=== PATIENT | male | born 1955 | race Caucasian/White ===

== ENCOUNTER 2020-09-09 06:53 | Day surgery (SDC) | payer BC ==
[2020-09-09] MEDS ORDERED: Lactated Ringers 1,000 ML IV SCH (07:00)
[2020-09-09] MEDS ORDERED: fentaNYL 100 MCG/2 ML SDV ONE (07:39)
[2020-09-09] MEDS ORDERED: Propofol 200 MG/20 ML SDV ONE ×3 (07:39→08:48)
--- NOTE | 2020-09-09 11:55 | OR ---
PREOPERATIVE DIAGNOSIS: Positive FIT. POSTOPERATIVE DIAGNOSIS: Colon polyps. PROCEDURE PERFORMED: Total flexible colonoscopy with biopsies. ANESTHESIA: MAC anesthesia. COMPLICATIONS: None apparent. BLOOD LOSS: Minimal. FINDINGS: 1. Cecal polyp, 8 mm, hot snare, bisected polyp for retrieval through the scope, although it was removed in its entirety in 1 snare. 2. Ascending polyp, 4 mm, cold snare. 3. Sigmoid polyps x2, 5 mm/3 mm, hot snare, and cold forceps. 4. Sigmoid diverticulosis. START TIME: 821. CECUM TIME: 827. STOP TIME: 853. BOWEL PREP: [place] class 3. INDICATIONS FOR PROCEDURE: Mr. Bell is a 64-year-old male who had a positive FIT test a year or so ago. He has had no prior colon cancer screening of any sort. He has not had no bloody or dark black stools, and denies a family history of colon cancer. PROCEDURE IN DETAIL: After informed consent was obtained, the patient was brought to the procedure room, placed in left lateral decubitus position. MAC anesthesia was induced by Anesthesia colleagues. The colonoscope was introduced into the rectum and advanced all the way to the cecum. The appendiceal orifice was photographed. The terminal ileum was intubated and photographed. The colonoscope was then slowly withdrawn. No pathology was identified except for what is mentioned in the above findings section. A retroflexed view was obtained and the colonoscope was then removed. The patient was awoken from MAC anesthesia by Anesthesia colleagues without incident. PATHOLOGY: A) Colon, cecum, polyp Tubulovillous adenoma. B) Colon, ascending, polyp Sessile serrated adenoma. C) Colon, sigmoid, polyp Fragment of tubular adenoma. Fragments of hyperplastic polyp. RECOMMENDATIONS: Repeat screening colonoscopy in 3 years. RKM: 09/09/2020 08:59:16 MODL: 09/09/2020 09:18:27 /[id number] JUAN ALBERTO
--- NOTE | 2020-09-15 08:42 | LETTER ---
09/14/2020 Kranthi Bell [address] [place], [place] [address] RE: KRANTHI BELL : 1955 Dear Mr. Bell: I am writing to inform you of the pathology results from your recent colonoscopy. You had several precancerous polyps. These polyps do not contain cancer, but we removed them in order to prevent them from becoming cancer. Due to the number of precancers polyps you had, you will need a repeat screening colonoscopy in 3 years. Warmest regards,
== END 2020-09-09 10:15 | disposition home or self-care (01) ==
LOC: VM.SDS 06:53
PROVIDERS: ATTEND Student in an Organized Health Care Education/Training Program
DX: D12.2 Benign neoplasm of ascending colon (principal); D12.0 Benign neoplasm of cecum; D12.5 Benign neoplasm of sigmoid colon; K57.30 Diverticulosis of large intestine without perforation or abscess without bleeding; I10 Essential (primary) hypertension; G47.33 Obstructive sleep apnea (adult) (pediatric); E66.9 Obesity, unspecified; F17.210 Nicotine dependence, cigarettes, uncomplicated; Z01.812 Encounter for preprocedural laboratory examination; Z20.822 Contact with and (suspected) exposure to COVID-19; Z98.890 Other specified postprocedural states; Z68.37 Body mass index [BMI] 37.0-37.9, adult; Z79.899 Other long term (current) drug therapy
CPT/HCPCS: 00811; J2704; J3010; J7120; U0002

== ENCOUNTER 2021-07-24 22:08 | Inpatient (IN) | payer BC, MEDICARE ==
--- NOTE | 2021-07-24 23:14 | EDM.PDOC ---
ED HPI GENERAL MEDICAL PROBLEM - General Stated Complaint: SOB Time Seen by Provider: 07/24/21 22:17 Source of Information: Reports: Patient - History of Present Illness INITIAL COMMENTS - FREE TEXT/NARRATIVE: Kranthi is a 65 y/o male who comes to the ER with SOB. He reports that he has had a cough and sore throat for at least 6 days and now over the last 2 days he has gotten much more short of breath. Symptoms first started with a sore throat and runny nose. He hasn't had much energy and has kristin more tired. He is sat is 87% on room air when he arrives to the ER. - Related Data Allergies Allergy/AdvReac Type Severity Reaction Status Date / Time No Known Allergies Allergy Verified 09/09/20 07:46 Home Meds: Home Meds lisinopriL [Lisinopril] 40 mg PO DAILY 06/02/19 [History] amLODIPine [Norvasc] 5 mg PO DAILY 08/17/20 [History] Past Medical History HEENT History: Reports: Other (See Below) Other HEENT History: presbyopia. astigmatism. hypermetropia Cardiovascular History: Reports: Hypertension Respiratory History: Reports: Sleep Apnea Psychiatric History: Reports: Other (See Below) Other Psychiatric History: smoker. drinks alcohol > 4/day Endocrine/Metabolic History: Reports: Obesity/BMI 30+ - Past Surgical History HEENT Surgical History: Reports: Other (See Below) Other HEENT Surgeries/Procedures: tooth extraction Social & Family History - Caffeine Use Caffeine Use: Reports: None Review of Systems - Review of Systems Review Of Systems: See Below Constitutional: Reports: Weakness Eyes: Reports: No Symptoms Ears: Reports: No Symptoms Nose: Reports: Clear Discharge Mouth/Throat: Reports: Pain Respiratory: Reports: Shortness of Breath, Cough Cardiovascular: Reports: No Symptoms GI/Abdominal: Reports: Decreased Appetite Genitourinary: Reports: No Symptoms Musculoskeletal: Reports: No Symptoms Skin: Reports: No Symptoms Neurological: Reports: No Symptoms Psychiatric: Reports: No Symptoms ED EXAM, GENERAL - Physical Exam Exam: See Below Exam Limited By: No Limitations General Appearance: Alert, WD/WN, No Apparent Distress (Elderly male, sitting on edge of ER cart.) Eye Exam: Bilateral Eye: PERRL Ears: Normal External Exam, Normal Canal, Hearing Grossly Normal, Normal TMs Nose: Normal Inspection, Normal Mucosa Throat/Mouth: Normal Inspection, Normal Lips, Normal Oropharynx, Normal Voice Head: Atraumatic, Normocephalic Neck: Supple Respiratory/Chest: No Respiratory Distress, Other (Coarseness scattered throughout) Cardiovascular: Normal Peripheral Pulses, Regular Rate, Rhythm, No Murmur GI/Abdominal: Normal Bowel Sounds, Soft, Non-Tender (Male) Exam: Deferred Rectal (Males) Exam: Deferred Back Exam: Normal Inspection, Full Range of Motion Extremities: Normal Inspection, Normal Range of Motion, Non-Tender, Normal Capillary Refill, Pedal Edema (1+ nonpitting edema to ankles) Neurological: Alert, Oriented, CN II-XII Intact, Normal Cognition, Normal Gait, No Motor/Sensory Deficits Psychiatric: Normal Affect, Normal Mood Skin Exam: Warm, Dry, Intact, Normal Color Lymphatic: No Adenopathy #1 Interpretation EKG Date: 07/24/21 Time: 23:00 Rhythm: NSR Rate (Beats/Min): 76 [place]: Normal P-Wave: Present QRS: Normal ST-T: Normal QT: Normal EKG Interpretation Comments: Sinus Rhythm Course - Vital Signs Text/Narrative:: 2218 The patient was seen by the FRACTIONATION SUPERVISOR. Labs, EKG, and CXR ordered. He required 2 liters of oxygen to maintain sats in mid 90s. 2325 COVID/Flu/RSV negative. Note D-Dimer=0.80, oxygen removed and patient drops sats to 87%. CT Chest Angio ordered to rule out PE. Labs reviewed. Note VU=572. Will need to be admitted to acute care. [address] Serrano and notified of patient case. CT Chest pending yet. Will plan for Dr Serrano to admit patient. See admitting orders and H&P per Dr Serrano. NS started @ 2100ml/hr. - Orders/Labs/Meds Orders: Active Orders 24 hr Category Date Time Status Patient Status [ADT] Routine ADT 07/25/21 00:24 Ordered Oxygen Therapy Adult [Oxygen Therapy] [RC] ASDIRECTED Care 07/24/21 22:20 Active Ang Chest [CT] Stat Exams 07/24/21 23:23 Ordered LACTIC ACID [CHEM] Stat Lab 07/25/21 00:02 Ordered Sodium Chloride 0.9% [Normal Saline] 1,000 ml Med 07/25/21 00:30 Ordered IV ASDIRECTED Labs: Laboratory Tests 07/24/21 07/24/21 07/24/21 Range/Units 22:25 22:50 22:50 WBC 7.6 (4.0-10.0) x10^3/uL RBC 5.22 (4.5-6.0) x10^6/uL Hgb 16.7 (14.0-18.0) g/dL Hct 49.4 (40.0-52.0) % MCV 94.6 H (78.0-93.0) fL MCH 32.0 (26.0-32.0) pg MCHC 33.8 (32.0-36.0) g/dL RDW Coeff of Ariella 12.0 (10.0-15.0) % Plt Count 210 (130-400) x10^3/uL Immature Gran % (Auto) 0.30 (0.00-0.43) % Neut % (Auto) 72.8 (50.0-80.0) % Lymph % (Auto) 15.8 L (25.0-50.0) % Millard % (Auto) 9.5 (2.0-11.0) % Eos % (Auto) 1.3 (0.0-4.0) % Baso % (Auto) 0.3 (0.2-1.2) % Neut # (Auto) 5.6 (1.8-7.7) x10^3/uL Lymph # (Auto) 1.2 (1.0-4.8) x10^3/uL Millard # (Auto) 0.7 (0.0-0.8) x10^3/uL Eos # (Auto) 0.1 (0.0-0.5) x10^3/uL Baso # (Auto) 0.0 (0.0-0.2) x10^3/uL Immature Gran # (Auto) 0.02 (0.00-0.07) x10^3/uL PT 10.8 (9.9-12.5) SEC INR 1.0 L (2.0-3.5) D-Dimer, Quantitative 0.80 H (<=0.58) mg/LFEU POC ABG pH (7.35-7.45) pH POC ABG pCO2 (35-48) mmHg POC ABG pO2 (83-108) mmHg POC ABG HCO3 (21-28) mmol/L POC ABG Total CO2 (22-29) mmol/L POC ABG O2 Sat (94-98) % POC ABG Base Excess ((-2)-3) mmol/L POC FiO2 POC Blood Gas Comment Sodium (136-145) mmol/L Potassium (3.5-5.1) mmol/L Chloride (98-107) mmol/L Carbon Dioxide (21-32) mmol/L Anion Gap (5-15) mmol/L BUN (7-18) mg/dL Creatinine (0.70-1.30) mg/dL Est Cr Clr Drug Dosing Estimated GFR (MDRD) Glucose (70-99) mg/dL Calcium (8.5-10.1) mg/dL Corrected Calcium (8.5-10.1) mg/dL Total Bilirubin (0.2-1.0) mg/dL AST (15-37) U/L ALT (16-63) U/L Alkaline Phosphatase (46-116) U/L Troponin I High Sens (<=76) ng/L NT-Pro-B Natriuret Pep (<=125) pg/mL Total Protein (6.4-8.2) g/dL Albumin (3.4-5.0) g/dL Globulin Albumin/Globulin Ratio Procalcitonin (0.1-0.50) ng/mL Influenza Type A RNA Negative (NEGATIVE) RSV RNA (INAAT) Negative (NEGATIVE) Influenza Type B RNA Negative (NEGATIVE) SARS-CoV-2 RNA (AVA) Negative (NEGATIVE) 07/24/21 07/24/21 07/24/21 Range/Units 22:50 22:50 23:38 WBC (4.0-10.0) x10^3/uL RBC (4.5-6.0) x10^6/uL Hgb (14.0-18.0) g/dL Hct (40.0-52.0) % MCV (78.0-93.0) fL MCH (26.0-32.0) pg MCHC (32.0-36.0) g/dL RDW Coeff of Ariella (10.0-15.0) % Plt Count (130-400) x10^3/uL Immature Gran % (Auto) (0.00-0.43) % Neut % (Auto) (50.0-80.0) % Lymph % (Auto) (25.0-50.0) % Millard % (Auto) (2.0-11.0) % Eos % (Auto) (0.0-4.0) % Baso % (Auto) (0.2-1.2) % Neut # (Auto) (1.8-7.7) x10^3/uL Lymph # (Auto) (1.0-4.8) x10^3/uL Millard # (Auto) (0.0-0.8) x10^3/uL Eos # (Auto) (0.0-0.5) x10^3/uL Baso # (Auto) (0.0-0.2) x10^3/uL Immature Gran # (Auto) (0.00-0.07) x10^3/uL PT (9.9-12.5) SEC INR (2.0-3.5) D-Dimer, Quantitative (<=0.58) mg/LFEU POC ABG pH 7.40 (7.35-7.45) pH POC ABG pCO2 43 (35-48) mmHg POC ABG pO2 57 L* (83-108) mmHg POC ABG HCO3 26.6 (21-28) mmol/L POC ABG Total CO2 27.1 (22-29) mmol/L POC ABG O2 Sat 89.1 L (94-98) % POC ABG Base Excess 2 ((-2)-3) mmol/L POC FiO2 28 POC Blood Gas Comment Called critical res Sodium 124 L* (136-145) mmol/L Potassium 4.5 (3.5-5.1) mmol/L Chloride 90 L (98-107) mmol/L Carbon Dioxide 30 (21-32) mmol/L Anion Gap 8.5 (5-15) mmol/L BUN 13 (7-18) mg/dL Creatinine 0.9 (0.70-1.30) mg/dL Est Cr Clr Drug Dosing TNP Estimated GFR (MDRD) > 60 Glucose 103 H (70-99) mg/dL Calcium 8.5 (8.5-10.1) mg/dL Corrected Calcium 9.0 (8.5-10.1) mg/dL Total Bilirubin 0.5 (0.2-1.0) mg/dL AST 23 (15-37) U/L ALT 23 (16-63) U/L Alkaline Phosphatase 113 (46-116) U/L Troponin I High Sens 13 (<=76) ng/L NT-Pro-B Natriuret Pep 99 (<=125) pg/mL Total Protein 8.0 (6.4-8.2) g/dL Albumin 3.4 (3.4-5.0) g/dL Globulin 4.6 Albumin/Globulin Ratio 0.74 Procalcitonin <0.05 L (0.1-0.50) ng/mL Influenza Type A RNA (NEGATIVE) RSV RNA (INAAT) (NEGATIVE) Influenza Type B RNA (NEGATIVE) SARS-CoV-2 RNA (AVA) (NEGATIVE) Departure - Departure Time of Disposition: 00:05 Disposition: Admitted As Inpatient 66 Condition: Good Clinical Impression: Hypoxemia, Hyponatremia, D-dimer, elevated - Discharge Information Referrals: Angela Sutherland MD [Primary Care Provider] - Additional Instructions: -Admit to Acute Inpatient Care - Problem List & Annotations (1) Hyponatremia SNOMED Code(s): 53334188 Code(s): E87.1 - HYPO-OSMOLALITY AND HYPONATREMIA Status: Acute Current Visit: Yes (2) D-dimer, elevated SNOMED Code(s): 305338733 Code(s): R79.89 - OTHER SPECIFIED ABNORMAL FINDINGS OF BLOOD CHEMISTRY Status: Acute Current Visit: Yes Annotation/Comment:: CT Chest pending to exclude PE. (3) Hypoxemia SNOMED Code(s): 031753269 Code(s): R09.02 - HYPOXEMIA Status: Acute Current Visit: Yes Annotation/Comment:: Needs 2 liters of oxygen to maintain sats. COVID/flu/RSV neg. D-Dimer=0.80, CT Chest pending. Current tobacco user. Most likely COPD Exacerbation. - Problem List Review Problem List Initiated/Reviewed/Updated: Yes - My Orders Last 24 Hours: My Active Orders 07/24/21 22:20 Oxygen Therapy Adult [Oxygen Therapy] [RC] ASDIRECTED 07/24/21 23:23 Ang Chest [CT] Stat 07/25/21 00:02 LACTIC ACID [CHEM] Stat 07/25/21 00:24 Patient Status [ADT] Routine 07/25/21 00:30 Sodium Chloride 0.9% [Normal Saline] 1,000 ml IV ASDIRECTED - Assessment/Plan Last 24 Hours: My Active Orders 07/24/21 22:20 Oxygen Therapy Adult [Oxygen Therapy] [RC] ASDIRECTED 07/24/21 23:23 Ang Chest [CT] Stat 07/25/21 00:02 LACTIC ACID [CHEM] Stat 07/25/21 00:24 Patient Status [ADT] Routine 07/25/21 00:30 Sodium Chloride 0.9% [Normal Saline] 1,000 ml IV ASDIRECTED Plan: -Dr Serrano to admit to Acute Care
[2021-07-24 23:18] LABS: CORONAVIRUS COVID-19 NAA NEGATIVE (NEGATIVE); RESPIRATORY SYNCYTIAL VIR NAA NEGATIVE (NEGATIVE)
[2021-07-24 23:22] LABS: CHLORIDE,CL 90 mmol/L (98-107)
[2021-07-24 23:23] LABS: ANION GAP 8.5 mmol/L (5-15); SODIUM,NA 124 mmol/L (136-145)
[2021-07-24 23:41] LABS: PCO2 ARTERIAL,POC 43 mmHg (35-48)
[2021-07-25] MEDS ORDERED: Iopamidol 755 Mg/ML 100 ML Bottle IVPUSH ONE (00:44)
[2021-07-25] MEDS ORDERED: Acetaminophen 325 MG Tab PO PRN (00:47)
[2021-07-25] MEDS ORDERED: LORazepam 1 MG Tab PO PRN (00:57)
[2021-07-25] MEDS: Sodium Chloride 0.9% 1,000 ML IV SCH ×3 (01:00→21:30)
[2021-07-25] MEDS ORDERED: methylPREDNISolone Sod Succ 125 MG in Sodium Chloride 0.9% 100 ML IV SCH (01:00)
[2021-07-25] MEDS: Enoxaparin 40 MG/0.4 ML Syringe SUBCUT SCH ×3 (01:37→19:55)
[2021-07-25] MEDS: Albuterol/Ipratropium 3.0-0.5 MG/3 ML Neb Soln NEB SCH ×6 (01:38→22:36)
[2021-07-25] MEDS: methylPREDNISolone Sodium Succinate 125 MG/2 ML SDV IVPUSH SCH ×4 (01:38→17:32)
--- NOTE | 2021-07-25 01:52 | HP ---
CHIEF COMPLAINT: Shortness of breath. HISTORY OF PRESENT ILLNESS: The patient is a 65-year-old male, patient of Dr. Angela Sutherland who presents to the emergency room after feeling sick for the past week. He has had nasal congestion, chilled, and has had some allergy inhalers. He became more weak after blowing snow on 07/17/2021. He had called into the clinic on 07/24/2021, asking for advice and felt that he should probably be seen the next day, may try some nasal sprays. When presenting to the emergency room, his initial O2 sats were down to 87%, and so he was immediately placed on oxygen, sats went up to 95%. He was denying chest pain, just feeling weak and achy chills. He has had his COVID vaccine. MEDICATIONS: His medications that he is currently on is lisinopril 20 mg 2 pills daily, Norvasc 10 mg daily. ALLERGIES: None known. PAST MEDICAL HISTORY: He has had hypertension; obstructive sleep apnea, which he has declined a sleep study for; he has a tobacco use disorder where he smokes about 2 packs a day; alcohol use disorder, he consumes at least 8 beers a day. He was noted to have heme-positive stools in 2019, but failed to get colonoscopy. PAST SURGICAL HISTORY: He has had teeth extraction. FAMILY HISTORY: Mother healthy. Father had COPD, at 72. Sisters had uterine cancer. Granddaughters had glaucoma. Daughters had congenital heart disease and had mitral valve replacement. SOCIAL HISTORY: The patient is . He is a desai. He smokes 2 packs a day normally, but has not smoked much this week. Alcohol use is 8 beers a day. REVIEW OF SYSTEMS: Weight has been about the same. Does have some mild swelling in his feet. No skin rashes. No headaches. Does have a little bit of nasal congestion as well as cough. No chest pain. No nausea. No heartburn. No constipation. No problems with his bladder. Mood is good. PHYSICAL EXAMINATION: Vital Signs: Temperature is 36.9, pulse is 72, blood pressure is 144/77, respiratory rate 16, oxygen is 95 on 2 L. General: Patient's skin is quite flushed. HEENT: His mucous membranes are moist. Pharynx is somewhat beefy red. Conjunctivae are injected. Pupils equal and reactive to light. Tympanic membranes normal bilaterally. Neck: Thick, obese. Difficult to feel anatomy. Heart: Regular rate and rhythm. Lungs: Rare inspiratory wheeze on left base. Abdomen: Obese, soft. Difficult to palpate anatomy due to obesity. Extremities: Lower extremities have trace edema. Neurologic: He moves all extremities symmetric. Mood lopez, he is alert, pleasant to visit with. LABORATORY DATA: Shows his white blood cell count 7.6, hemoglobin 16.7, platelet count 210, with 72 segs, 15 lymphocytes. INR is 1.0. D-dimer elevated at 0.08. Blood gases on 2 L shows pH of 7.4, pCO2 of 43, pO2 of 57, bicarb 26, O2 sats 89 on 2 L. His sodium is 124, potassium 4.5, creatinine 0.9, GFR greater than 60. Glucose 103, lactic acid 0.9, calcium 9.0, total bilirubin 0.5, AST 23, ALT 23, alkaline phosphatase 113. Troponin 13, normal is 76 or less. proBNP 99, albumin 3.4. Procalcitonin less than 0.05. Influenza A and B were negative. RSV negative. COVID negative. CTA of chest is pending at the time of this dictation. IMPRESSION: 1. Hypoxemia, unclear etiology, probably most likely exacerbation of chronic obstructive pulmonary disease. 2. Positive D-dimer. 3. Hyponatremia. 4. Alcohol dependence. 5. Tobacco dependence. 6. Hypertension. 7. Obesity. 8. Obstructive sleep apnea, untreated. PLAN: The patient will be admitted to acute care. He will be code level 1 status. We will start him on Lovenox prophylactic, but if he is positive we will need to do therapeutic treatment for pulmonary embolism. The patient will be placed on DuoNeb to help with respiratory status. We will have patient receive Solu-Medrol to also help with respiratory status. We will place him on a nicotine patch unless he declines it. We will offer Ativan in case he gets some agitation with alcohol withdrawal. He has never had a history of DTs. We will start him on oral thiamine. We will recheck his sodium. He will receive IV fluids somewhat cautiously, not to over hydrate. Anticipate patient's stay to be a few days. The patient is code level 1 status. He will be admitted to Dr. Angela Sutherland's service. GM07/25/2021 01:08:56 MODL: 07/25/2021 01:46:52 /[id number]
--- NOTE | 2021-07-25 05:35 | CT ---
[id number] CT/CTA Chest EXAM: CTA Chest CLINICAL DATA: SHORTNESS OF BREATH COMPARISON STUDY: None. FINDINGS: Lungs: Mild bilateral central symmetric lower lobe predominant peribronchial thickening. Findings are most consistent with bronchitis/bronchiolitis. No evidence of pneumonia. Mild amount of bibasal atelectasis and scarring. No pleural effusion or pneumothorax. Mediastinum: No mediastinal or hilar lymphadenopathy. Heart and great vessels: Heart is normal in size. No pericardial effusion. Thoracic aorta is normal in caliber. Pulmonary arteries are normal in caliber. Negative for pulmonary embolus. Bones: Chronic healed left-sided rib fractures. No acute fractures. Mild lumbar spondylosis. Upper abdomen: Unremarkable. IMPRESSION: Negative for pulmonary embolus or other acute findings in the chest. Lincoln Moser MD 07/25/21 0534 Thank you for allowing us to participate in the care of your patient.
[2021-07-25 07:44] LABS: CHLORIDE,CL 93 mmol/L (98-107)
[2021-07-25 07:46] LABS: ANION GAP 8.3 mmol/L (5-15); SODIUM,NA 126 mmol/L (136-145)
[2021-07-25] MEDS ORDERED: amLODIPine 5 MG Tab PO SCH (08:00)
[2021-07-25] MEDS ORDERED: Thiamine 100 MG Tab PO SCH (08:00)
[2021-07-25] MEDS ORDERED: Nicotine 21 MG/24 Hr Patch TRDERM SCH (08:00)
[2021-07-25] MEDS ORDERED: Lisinopril 20 MG Tab PO SCH (08:00)
--- NOTE | 2021-07-25 09:25 | PCM.SN.2 ---
- Free Text/Narrative Note: Checked on patient this morning. He is feeling ok. No shortness of breath. Na up to 126. Will continue IV fluids. Recheck this pm. Did order urine sodium and creatinine to help clarify cause for hypoNa. Will also check TSH and cortisol with am labs. CTA negative for PE. Continue current cares otherwise.
[2021-07-25] MEDS: Nicotine 21 MG/24 Hr Patch TRDERM SCH (09:42)
[2021-07-25] MEDS: Lisinopril 20 MG Tab PO SCH (09:44)
[2021-07-25] MEDS: amLODIPine 10 MG Tab PO SCH (09:46)
[2021-07-25 14:28] LABS: CHLORIDE,CL 92 mmol/L (98-107)
[2021-07-25 14:30] LABS: ANION GAP 13.5 mmol/L (5-15); SODIUM,NA 129 mmol/L (136-145)
[2021-07-25] MEDS: Thiamine 100 MG Tab PO SCH (19:55)
[2021-07-26] MEDS: methylPREDNISolone Sodium Succinate 125 MG/2 ML SDV IVPUSH SCH ×3 (02:45→18:12)
[2021-07-26] MEDS: Albuterol/Ipratropium 3.0-0.5 MG/3 ML Neb Soln NEB SCH ×6 (02:46→22:44)
[2021-07-26] MEDS: Sodium Chloride 0.9% 1,000 ML IV SCH (06:26)
[2021-07-26 07:12] LABS: CHLORIDE,CL 96 mmol/L (98-107); SODIUM,NA 132 mmol/L (136-145)
[2021-07-26 07:15] LABS: ANION GAP 9.3 mmol/L (5-15)
[2021-07-26] MEDS: Nicotine 21 MG/24 Hr Patch TRDERM SCH (07:54)
[2021-07-26] MEDS: amLODIPine 10 MG Tab PO SCH (07:54)
[2021-07-26] MEDS: Lisinopril 20 MG Tab PO SCH (07:54)
--- NOTE | 2021-07-26 10:40 | PCM.PN ---
- General Info Date of Service: 07/26/21 Subjective Update: 65 yo male hospital day #2 admitted with hypoxia secondary to COPD exacerbation as well as hyponatremia. Feeling much better today. Lungs feel more open. He is not short of breath. He states he is bringing up sputum now with his cough. He denies any fever or c hills. He feels less weak. He does note that he has really been drinking more like 12-15 beers/day and knows he has a problem. He is ready to be done drinking. He also was smoking 2 packs/day and is ready to be done with that as well. - Review of Systems General: Reports: No Symptoms HEENT: Reports: No Symptoms Pulmonary: Reports: Cough, Sputum. Denies: Shortness of Breath Cardiovascular: Reports: No Symptoms Gastrointestinal: Reports: No Symptoms Genitourinary: Reports: No Symptoms Musculoskeletal: Reports: No Symptoms Skin: Reports: No Symptoms Neurological: Reports: No Symptoms - Patient Data Vitals - Most Recent: Last Vital Signs Temp 36.9 C 07/26/21 06:00 Pulse 88 07/26/21 06:00 Resp 18 07/26/21 06:00 BP 150/59 H 07/26/21 07:54 Pulse Ox 94 L 07/26/21 07:53 Weight - Most Recent: 124.647 kg I&O - Last 24 Hours: Intake & Output 07/25/21 07/26/21 07/26/21 22:59 06:59 14:59 Intake Total 800 Balance 800 Lab Results Last 24 Hours: Laboratory Results - last 24 hr 07/25/21 07/25/21 07/25/21 Range/Units 04:40 04:40 06:40 WBC (4.0-10.0) x10^3/uL RBC (4.5-6.0) x10^6/uL Hgb (14.0-18.0) g/dL Hct (40.0-52.0) % MCV (78.0-93.0) fL MCH (26.0-32.0) pg MCHC (32.0-36.0) g/dL RDW Coeff of Ariella (10.0-15.0) % Plt Count (130-400) x10^3/uL Immature Gran % (Auto) (0.00-0.43) % Neut % (Auto) (50.0-80.0) % Lymph % (Auto) (25.0-50.0) % [place] % (Auto) (2.0-11.0) % Eos % (Auto) (0.0-4.0) % Baso % (Auto) (0.2-1.2) % Neut # (Auto) (1.8-7.7) x10^3/uL Lymph # (Auto) (1.0-4.8) x10^3/uL [place] # (Auto) (0.0-0.8) x10^3/uL Eos # (Auto) (0.0-0.5) x10^3/uL Baso # (Auto) (0.0-0.2) x10^3/uL Immature Gran # (Auto) (0.00-0.07) x10^3/uL Sodium (136-145) mmol/L Potassium (3.5-5.1) mmol/L Chloride (98-107) mmol/L Carbon Dioxide (21-32) mmol/L Anion Gap (5-15) mmol/L BUN (7-18) mg/dL Creatinine (0.70-1.30) mg/dL Est Cr Clr Drug Dosing mL/min Estimated GFR (MDRD) Glucose (70-99) mg/dL Calcium (8.5-10.1) mg/dL GGT 34 (9-64) U/L Ur Creatinine Concen 45 mg/dL U Sodium Concentration 18 mEq/L 07/25/21 07/26/21 07/26/21 Range/Units 14:05 06:45 06:45 WBC 14.0 H (4.0-10.0) x10^3/uL RBC 4.80 (4.5-6.0) x10^6/uL Hgb 15.6 (14.0-18.0) g/dL Hct 45.9 (40.0-52.0) % MCV 95.6 H (78.0-93.0) fL MCH 32.5 H (26.0-32.0) pg MCHC 34.0 (32.0-36.0) g/dL RDW Coeff of Ariella 12.0 (10.0-15.0) % Plt Count 216 (130-400) x10^3/uL Immature Gran % (Auto) 0.40 (0.00-0.43) % Neut % (Auto) 93.8 H (50.0-80.0) % Lymph % (Auto) 3.8 L (25.0-50.0) % [place] % (Auto) 1.9 L (2.0-11.0) % Eos % (Auto) 0.0 (0.0-4.0) % Baso % (Auto) 0.1 L (0.2-1.2) % Neut # (Auto) 13.1 H (1.8-7.7) x10^3/uL Lymph # (Auto) 0.5 L (1.0-4.8) x10^3/uL [place] # (Auto) 0.3 (0.0-0.8) x10^3/uL Eos # (Auto) 0.0 (0.0-0.5) x10^3/uL Baso # (Auto) 0.0 (0.0-0.2) x10^3/uL Immature Gran # (Auto) 0.05 (0.00-0.07) x10^3/uL Sodium 129 L* 132 L (136-145) mmol/L Potassium 4.5 5.3 H (3.5-5.1) mmol/L Chloride 92 L 96 L (98-107) mmol/L Carbon Dioxide 28 32 (21-32) mmol/L Anion Gap 13.5 9.3 (5-15) mmol/L BUN 13 11 (7-18) mg/dL Creatinine 1.2 0.9 (0.70-1.30) mg/dL Est Cr Clr Drug Dosing 59.38 79.17 mL/min Estimated GFR (MDRD) > 60 > 60 Glucose 156 H 153 H (70-99) mg/dL Calcium 8.7 8.3 L (8.5-10.1) mg/dL GGT (9-64) U/L Ur Creatinine Concen mg/dL U Sodium Concentration mEq/L Med Orders - Current: Current Medications Acetaminophen (Acetaminophen 325 Mg Tab) 650 mg PO Q4H PRN PRN Reason: Pain (Mild 1-3)/fever Albuterol/Ipratropium (Albuterol/Ipratropium 3.0-0.5 Mg/3 Ml Neb Soln) 3 ml NEB Q4HRRT [facility] Last Admin: 07/26/21 06:29 Dose: 3 ml Documented by: Amlodipine Besylate (Amlodipine 10 Mg Tab) 10 mg PO DAILY [facility] Last Admin: 07/26/21 07:54 Dose: 10 mg Documented by: Doxycycline Hyclate (Doxycycline 100 Mg Cap) 100 mg PO BID [facility] Enoxaparin Sodium (Enoxaparin 40 Mg/0.4 Ml Syringe) 40 mg SUBCUT BEDTIME [facility] Last Admin: 07/25/21 19:55 Dose: 40 mg Documented by: Lisinopril (Lisinopril 20 Mg Tab) 40 mg PO DAILY [facility] Last Admin: 07/26/21 07:54 Dose: 40 mg Documented by: Methylprednisolone Sodium Succinate (Methylprednisolone Sodium Succinate 125 Mg/2 Ml Sdv) 125 mg IVPUSH Q8H [facility] Last Admin: 07/26/21 09:17 Dose: 125 mg Documented by: Nicotine (Nicotine 21 Mg/24 Hr Patch) 21 mg TRDERM DAILY [facility] Last Admin: 07/26/21 07:54 Dose: 21 mg Documented by: Thiamine HCl (Thiamine 100 Mg Tab) 100 mg PO BEDTIME [facility] Last Admin: 07/25/21 19:55 Dose: 100 mg Documented by: Discontinued Medications Albuterol/Ipratropium (Albuterol/Ipratropium 3.0-0.5 Mg/3 Ml Neb Soln) 3 ml NEB Q4HRRT [facility] Last Admin: 07/25/21 06:09 Dose: 3 ml Documented by: Amlodipine Besylate (Amlodipine 5 Mg Tab) 10 mg PO DAILY [facility] Last Admin: 07/25/21 10:21 Dose: Not Given Documented by: Enoxaparin Sodium (Enoxaparin 40 Mg/0.4 Ml Syringe) 40 mg SUBCUT DAILY [facility] Last Admin: 07/25/21 10:21 Dose: Not Given Documented by: Sodium Chloride (Normal Saline) 1,000 mls @ 100 mls/hr IV ASDIRECTED [facility] Last Admin: 07/26/21 06:26 Dose: 100 mls/hr Documented by: Iopamidol (Iopamidol 755 Mg/Ml 100 Ml Bottle) 100 ml IVPUSH ONETIME ONE Stop: 07/25/21 00:45 Last Admin: 07/25/21 00:45 Dose: 100 ml Documented by: Lisinopril (Lisinopril 20 Mg Tab) 40 mg PO DAILY [facility] Last Admin: 07/25/21 10:21 Dose: Not Given Documented by: Lorazepam (Lorazepam 1 Mg Tab) 1 mg PO Q6H PRN PRN Reason: Agitation Last Admin: 07/25/21 01:38 Dose: 1 mg Documented by: Methylprednisolone Sodium Succinate (Methylprednisolone Sodium Succinate 125 M g/2 Ml Sdv) 125 mg IVPUSH Q8H [facility] Last Admin: 07/25/21 10:22 Dose: Not Given Documented by: Nicotine (Nicotine 21 Mg/24 Hr Patch) 21 mg TRDERM DAILY [facility] Last Admin: 07/25/21 10:21 Dose: 21 mg Documented by: Thiamine HCl (Thiamine 100 Mg Tab) 100 mg PO BEDTIME [facility] Last Admin: 07/25/21 10:22 Dose: Not Given Documented by: - Exam General: Alert, Oriented, Cooperative, No Acute Distress HEENT: Mucous Membr. Moist/[place] Neck: Supple, Trachea Midline, No Thyromegaly. No: Lymphadenopathy Lungs: Normal Respiratory Effort, Wheezing (throughout both lungs) Cardiovascular: Regular Rate, Regular Rhythm, No Murmurs GI/Abdominal Exam: Normal Bowel Sounds, Soft, Non-Tender, No Organomegaly, No Distention, No Mass Extremities: Normal Inspection, Normal Range of Motion, Non-Tender, No Pedal Edema, Normal Capillary Refill Peripheral Pulses: 2+: Radial (L), Radial (R) Skin: Warm, Dry, Intact Neurological: No New Focal Deficit - Patient Data Lab Results Last 24 hrs: Laboratory Results - last 24 hr 07/25/21 07/25/21 07/25/21 Range/Units 04:40 04:40 06:40 WBC (4.0-10.0) x10^3/uL RBC (4.5-6.0) x10^6/uL Hgb (14.0-18.0) g/dL Hct (40.0-52.0) % MCV (78.0-93.0) fL MCH (26.0-32.0) pg MCHC (32.0-36.0) g/dL RDW Coeff of Ariella (10.0-15.0) % Plt Count (130-400) x10^3/uL Immature Gran % (Auto) (0.00-0.43) % Neut % (Auto) (50.0-80.0) % Lymph % (Auto) (25.0-50.0) % [place] % (Auto) (2.0-11.0) % Eos % (Auto) (0.0-4.0) % Baso % (Auto) (0.2-1.2) % Neut # (Auto) (1.8-7.7) x10^3/uL Lymph # (Auto) (1.0-4.8) x10^3/uL [place] # (Auto) (0.0-0.8) x10^3/uL Eos # (Auto) (0.0-0.5) x10^3/uL Baso # (Auto) (0.0-0.2) x10^3/uL Immature Gran # (Auto) (0.00-0.07) x10^3/uL Sodium (136-145) mmol/L Potassium (3.5-5.1) mmol/L Chloride (98-107) mmol/L Carbon Dioxide (21-32) mmol/L Anion Gap (5-15) mmol/L BUN (7-18) mg/dL Creatinine (0.70-1.30) mg/dL Est Cr Clr Drug Dosing mL/min Estimated GFR (MDRD) Glucose (70-99) mg/dL Calcium (8.5-10.1) mg/dL GGT 34 (9-64) U/L Ur Creatinine Concen 45 mg/dL U Sodium Concentration 18 mEq/L 07/25/21 07/26/21 07/26/21 Range/Units 14:05 06:45 06:45 WBC 14.0 H (4.0-10.0) x10^3/uL RBC 4.80 (4.5-6.0) x10^6/uL Hgb 15.6 (14.0-18.0) g/dL Hct 45.9 (40.0-52.0) % MCV 95.6 H (78.0-93.0) fL MCH 32.5 H (26.0-32.0) pg MCHC 34.0 (32.0-36.0) g/dL RDW Coeff of Ariella 12.0 (10.0-15.0) % Plt Count 216 (130-400) x10^3/uL Immature Gran % (Auto) 0.40 (0.00-0.43) % Neut % (Auto) 93.8 H (50.0-80.0) % Lymph % (Auto) 3.8 L (25.0-50.0) % [place] % (Auto) 1.9 L (2.0-11.0) % Eos % (Auto) 0.0 (0.0-4.0) % Baso % (Auto) 0.1 L (0.2-1.2) % Neut # (Auto) 13.1 H (1.8-7.7) x10^3/uL Lymph # (Auto) 0.5 L (1.0-4.8) x10^3/uL [place] # (Auto) 0.3 (0.0-0.8) x10^3/uL Eos # (Auto) 0.0 (0.0-0.5) x10^3/uL Baso # (Auto) 0.0 (0.0-0.2) x10^3/uL Immature Gran # (Auto) 0.05 (0.00-0.07) x10^3/uL Sodium 129 L* 132 L (136-145) mmol/L Potassium 4.5 5.3 H (3.5-5.1) mmol/L Chloride 92 L 96 L (98-107) mmol/L Carbon Dioxide 28 32 (21-32) mmol/L Anion Gap 13.5 9.3 (5-15) mmol/L BUN 13 11 (7-18) mg/dL Creatinine 1.2 0.9 (0.70-1.30) mg/dL Est Cr Clr Drug Dosing 59.38 79.17 mL/min Estimated GFR (MDRD) > 60 > 60 Glucose 156 H 153 H (70-99) mg/dL Calcium 8.7 8.3 L (8.5-10.1) mg/dL GGT (9-64) U/L Ur Creatinine Concen mg/dL U Sodium Concentration mEq/L Result Diagrams: 07/26/21 06:45 07/26/21 06:45 Sepsis Event Note - Evaluation Sepsis Screening Result: No Definite Risk - Focused Exam Vital Signs: Vital Signs Temp Pulse Resp BP BP Pulse Ox Pulse Ox 07/26/21 07:54 150/59 H 07/26/21 07:53 94 L 07/26/21 06:00 36.9 C 88 18 150/59 H 94 L 07/26/21 02:05 36.7 C 91 18 155/79 H 91 L - Problem List & Annotations (1) Respiratory failure SNOMED Code(s): 356473383 Code(s): J96.90 - RESPIRATORY FAILURE, UNSP, UNSP W HYPOXIA OR HYPERCAPNIA Status: Acute Current Visit: Yes Qualifiers: Chronicity: acute Respiratory failure complication: hypoxia Qualified Code(s): J96.01 - Acute respiratory failure with hypoxia (2) COPD exacerbation SNOMED Code(s): 026746111 Code(s): J44.1 - CHRONIC OBSTRUCTIVE PULMONARY DISEASE W (ACUTE) EXACERBATION Status: Acute Current Visit: Yes (3) Tobacco dependence SNOMED Code(s): 18460441 Code(s): F17.200 - NICOTINE DEPENDENCE, UNSPECIFIED, UNCOMPLICATED Status: Chronic Current Visit: Yes (4) Hyponatremia SNOMED Code(s): 23715958 Code(s): E87.1 - HYPO-OSMOLALITY AND HYPONATREMIA Status: Acute Current Visit: Yes (5) Alcohol use disorder SNOMED Code(s): 6079509 Code(s): TSZ5213 - Status: Chronic Current Visit: Yes (6) Hypertension, benign SNOMED Code(s): 32920916 Code(s): I10 - ESSENTIAL (PRIMARY) HYPERTENSION Status: Chronic Current Visit: Yes (7) JOZEF (obstructive sleep apnea) SNOMED Code(s): 74849664 Code(s): G47.33 - OBSTRUCTIVE SLEEP APNEA (ADULT) (PEDIATRIC) Status: Chronic Current Visit: Yes (8) Obesity (BMI 30-39.9) SNOMED Code(s): 833228706, 517018659 Code(s): E66.9 - OBESITY, UNSPECIFIED Status: Chronic Current Visit: Yes - Problem List Review Problem List Initiated/Reviewed/Updated: Yes - My Orders Last 24 Hours: My Active Orders 07/26/21 10:14 Dietary Supplements [RC] BIDMEALS 07/26/21 10:15 Doxycycline [Vibramycin] 100 mg PO BID - Assessment Assessment:: 65 yo male hospital day #2 admitted with hypoxia secondary to COPD exacerbation as well as hyponatremia. Feeling much better today. Labs also improved. - Plan Plan:: #1 Acute hypoxic respiratory failure #2 COPD exacerbation #3 Tobacco use - O2 requirements have been fairly stable. Will wean as able. - [employer] to be secondary to COPD exacerbation as other causes (CHF, PE, pneumonia, viral pneumonia, etc) ruled out. - On methylprednisolone for COPD exacerbation, which will be continued today as he still has significant wheezing. - Will add doxycycline as he has 2 cardinal symptoms (cough, sputum) for COPD exacerbation. No role for IV antibiotics at this point. - Continue nebs. - He intends to quit smoking and denies needing any help with that at this time. #4 Hyponatremia - Likely secondary to #5. - Urine sodium and creatinine sent for clarification. - He is not on any diuretics. - Had intended to send TSH and cortisol this am but I did not get those orders in. Will order for tomorrow am. #5 Alcohol Use Disorder - Patient now admitting this is an issue. - Discussed medication assisted therapy, which he declines. - He will need follow-up on this outpatient. #6 HTN #7 Obesity #8 JOZEF - Home medications continued. Patient will remain on acute today - anticipate d/c in the next 24-48 hours. Would ideally have him weaned on the oxygen somewhat, if not off. Lovenox for VTE prophylaxis. Code status is full.
[2021-07-26] MEDS: Doxycycline 100 MG Cap PO SCH ×2 (11:51→21:15)
[2021-07-26] MEDS: Thiamine 100 MG Tab PO SCH (21:15)
[2021-07-26] MEDS: Enoxaparin 40 MG/0.4 ML Syringe SUBCUT SCH (21:15)
[2021-07-27] MEDS: methylPREDNISolone Sodium Succinate 125 MG/2 ML SDV IVPUSH SCH ×2 (02:26→11:02)
[2021-07-27] MEDS: Albuterol/Ipratropium 3.0-0.5 MG/3 ML Neb Soln NEB SCH ×2 (02:27→07:14)
[2021-07-27 07:16] LABS: CHLORIDE,CL 99 mmol/L (98-107); SODIUM,NA 136 mmol/L (136-145)
[2021-07-27 07:17] LABS: ANION GAP 8.8 mmol/L (5-15)
[2021-07-27] MEDS: Nicotine 21 MG/24 Hr Patch TRDERM SCH (07:48)
[2021-07-27] MEDS: Lisinopril 20 MG Tab PO SCH (07:49)
[2021-07-27] MEDS: Doxycycline 100 MG Cap PO SCH (07:49)
[2021-07-27] MEDS: amLODIPine 10 MG Tab PO SCH (07:49)
--- NOTE | 2021-07-27 09:01 | PCM.DCSUM1 ---
Discharge Summary - Hospital Course Brief History: Mr. Bell is a 65 yo male who was admitted with hyponatremia and hypoxia from a COPD exacerbation after presenting to the ER for shortness of breath and weakness. - Discharge Data Discharge Date: 07/27/21 Discharge Disposition: Home, Self-Care 01 Condition: Stable - Referral to Home Health Primary Care Physician: Angela Sutherland MD - Discharge Diagnosis/Problem(s) (1) Respiratory failure SNOMED Code(s): 947222921 ICD Code: J96.90 - RESPIRATORY FAILURE, UNSP, UNSP W HYPOXIA OR HYPERCAPNIA Status: Acute Current Visit: Yes Qualifiers: Chronicity: acute Respiratory failure complication: hypoxia Qualified Code(s): J96.01 - Acute respiratory failure with hypoxia (2) COPD exacerbation SNOMED Code(s): 211439983 ICD Code: J44.1 - CHRONIC OBSTRUCTIVE PULMONARY DISEASE W (ACUTE) EXACERBATION Status: Acute Current Visit: Yes (3) Tobacco dependence SNOMED Code(s): 54138982 ICD Code: F17.200 - NICOTINE DEPENDENCE, UNSPECIFIED, UNCOMPLICATED Status: Chronic Current Visit: Yes (4) Hyponatremia SNOMED Code(s): 94081097 ICD Code: E87.1 - HYPO-OSMOLALITY AND HYPONATREMIA Status: Acute Current Visit: Yes (5) Alcohol use disorder SNOMED Code(s): 6860594 ICD Code: VNF8469 - Status: Chronic Current Visit: Yes (6) Hypertension, benign SNOMED Code(s): 77585596 ICD Code: I10 - ESSENTIAL (PRIMARY) HYPERTENSION Status: Chronic Current Visit: Yes (7) JOZEF (obstructive sleep apnea) SNOMED Code(s): 25676286 ICD Code: G47.33 - OBSTRUCTIVE SLEEP APNEA (ADULT) (PEDIATRIC) Status: Chronic Current Visit: Yes (8) Obesity (BMI 30-39.9) SNOMED Code(s): 250199857, 213571511 ICD Code: E66.9 - OBESITY, UNSPECIFIED Status: Chronic Current Visit: Yes - Patient Summary/Data Operative Procedure(s) Performed: none Complications: none Consults: none Labs Pending at D/C: cortisol Recommended Follow-up Testing/Procedures: TSH Planned Operative Procedure(s) after DC: none Hospital Course: The patient was started on IV fluids for his hyponatremia. He was given nebs and steroids for his COPD. While he felt better yesterday am, he still had significant wheezing and a significant oxygen requirement; therefore, antibiotics were added. He has improved greatly over the past 24 hours. He states he feels the best he has felt in a long time. He has been weaned off oxyg en except for at night. He does have a history of JOZEF that is not currently treated. He is agreeable to an Auto-Pap prescription and follow-up with sleep medicine. His sodium had gradually improved so IV fluids were stopped yesterday morning. His sodium is now back to normal. The hyponatremia is felt to be secondary to excess alcohol use, which he intends to d/c at this time. He declines any referrals for treatments or any medications to assist. He also intends to quit smoking and would like nicotine replacement to assist with this. He will be discharged home with nicotine patches and gum, another 4 days of antibiotics, 3 days of prednisone, and a rescue inhaler. He will follow-up in clinic in about 10 days. His TSH was low during his hospitalization, felt to be related to the acute illness. Will plan to repeat in follow-up for reassessment. His hospitalization was otherwise uncomplicated. - Patient Instructions Diet: Regular Diet as Tolerated Activity: As Tolerated Driving: May Drive Today Notify Provider of: Fever - Discharge Plan *PRESCRIPTION DRUG MONITORING PROGRAM REVIEWED*: No *COPY OF PRESCRIPTION DRUG MONITORING REPORT IN PATIENT ANITA: No Prescriptions/Med Rec: Albuterol/Ipratropium [Combivent Respimat] 4 gm IH Q6H PRN #1 aer.w.adap PRN Reason: Shortness Of Breath Nicotine [Habitrol] 21 mg TRDERM DAILY #30 patch predniSONE [Prednisone] 40 mg PO DAILY #6 tablet Doxycycline [Vibramycin] 100 mg PO BID #8 cap Home Medications: Home Meds lisinopriL [Lisinopril] 40 mg PO DAILY 06/02/19 [History] amLODIPine Besylate [Amlodipine Besylate] 10 mg PO DAILY 07/25/21 [History] Albuterol/Ipratropium [Combivent Respimat] 4 gm IH Q6H PRN #1 aer.w.adap 07/27/21 [Rx] Doxycycline [Vibramycin] 100 mg PO BID #8 cap 07/27/21 [Rx] Nicotine [Habitrol] 21 mg TRDERM DAILY #30 patch 07/27/21 [Rx] predniSONE [Prednisone] 40 mg PO DAILY #6 tablet 07/27/21 [Rx] Forms: ED Department Discharge Referrals: Angela Sutherland MD [Primary Care Provider] - - Discharge Summary/Plan Comment DC Time >30 min.: Yes Total # of Minutes for Discharge Time: 35 - General Info Date of Service: 07/27/21 Subjective Update: Patient is feeling great this morning and hopes to go home. - Review of Systems General: Reports: No Symptoms HEENT: Reports: No Symptoms Pulmonary: Reports: No Symptoms Cardiovascular: Reports: No Symptoms Gastrointestinal: Reports: No Symptoms Genitourinary: Reports: No Symptoms Musculoskeletal: Reports: No Symptoms Skin: Reports: No Symptoms Neurological: Reports: No Symptoms - Patient Data Vitals - Most Recent: Last Vital Signs Temp 36.9 C 07/27/21 06:00 Pulse 100 07/27/21 06:00 Resp 18 07/27/21 06:00 BP 159/97 H 07/27/21 07:49 Pulse Ox 90 L 07/27/21 07:01 Weight - Most Recent: 123.559 kg I&O - Last 24 hours: Intake & Output 07/26/21 07/27/21 07/27/21 22:59 06:59 14:59 Intake Total 1360 240 360 Output Total 1500 Balance -140 240 360 Lab Results - Last 24 hrs: Laboratory Results - last 24 hr 07/27/21 07/27/21 Range/Units 06:25 06:25 WBC 15.4 H (4.0-10.0) x10^3/uL RBC 4.95 (4.5-6.0) x10^6/uL Hgb 16.0 (14.0-18.0) g/dL Hct 47.8 (40.0-52.0) % MCV 96.6 H (78.0-93.0) fL MCH 32.3 H (26.0-32.0) pg MCHC 33.5 (32.0-36.0) g/dL RDW Coeff of Ariella 12.2 (10.0-15.0) % Plt Count 220 (130-400) x10^3/uL Immature Gran % (Auto) 0.60 H (0.00-0.43) % Neut % (Auto) 95.5 H (50.0-80.0) % Lymph % (Auto) 2.6 L (25.0-50.0) % [place] % (Auto) 1.2 L (2.0-11.0) % Eos % (Auto) 0.0 (0.0-4.0) % Baso % (Auto) 0.1 L (0.2-1.2) % Neut # (Auto) 14.7 H (1.8-7.7) x10^3/uL Lymph # (Auto) 0.4 L (1.0-4.8) x10^3/uL [place] # (Auto) 0.2 (0.0-0.8) x10^3/uL Eos # (Auto) 0.0 (0.0-0.5) x10^3/uL Baso # (Auto) 0.0 (0.0-0.2) x10^3/uL Immature Gran # (Auto) 0.10 H (0.00-0.07) x10^3/uL Sodium 136 (136-145) mmol/L Potassium 4.8 (3.5-5.1) mmol/L Chloride 99 (98-107) mmol/L Carbon Dioxide 33 H (21-32) mmol/L Anion Gap 8.8 (5-15) mmol/L BUN 17 (7-18) mg/dL Creatinine 0.9 (0.70-1.30) mg/dL Est Cr Clr Drug Dosing 79.17 mL/min Estimated GFR (MDRD) > 60 Glucose 154 H (70-99) mg/dL Calcium 8.3 L (8.5-10.1) mg/dL C-Reactive Protein 0.4 (<=0.9) mg/dL TSH, Ultra Sensitive 0.154 L (0.358-3.74) uIU/mL Med Orders - Current: Current Medications Acetaminophen (Acetaminophen 325 Mg Tab) 650 mg PO Q4H PRN PRN Reason: Pain (Mild 1-3)/fever Albuterol/Ipratropium (Albuterol/Ipratropium 3.0-0.5 Mg/3 Ml Neb Soln) 3 ml NEB Q4HRRT [facility] Last Admin: 07/27/21 07:14 Dose: 3 ml Documented by: Amlodipine Besylate (Amlodipine 10 Mg Tab) 10 mg PO DAILY [facility] Last Admin: 07/27/21 07:49 Dose: 10 mg Documented by: Doxycycline Hyclate (Doxycycline 100 Mg Cap) 100 mg PO BID [facility] Last Admin: 07/27/21 07:49 Dose: 100 mg Documented by: Enoxaparin Sodium (Enoxaparin 40 Mg/0.4 Ml Syringe) 40 mg SUBCUT BEDTIME [facility] Last Admin: 07/26/21 21:15 Dose: 40 mg Documented by: Lisinopril (Lisinopril 20 Mg Tab) 40 mg PO DAILY [facility] Last Admin: 07/27/21 07:49 Dose: 40 mg Documented by: Methylprednisolone Sodium Succinate (Methylprednisolone Sodium Succinate 125 Mg/2 Ml Sdv) 125 mg IVPUSH Q8H [facility] Last Admin: 07/27/21 02:26 Dose: 125 mg Documented by: Nicotine (Nicotine 21 Mg/24 Hr Patch) 21 mg TRDERM DAILY [facility] Last Admin: 07/27/21 07:48 Dose: 21 mg Documented by: Thiamine HCl (Thiamine 100 Mg Tab) 100 mg PO BEDTIME [facility] Last Admin: 07/26/21 21:15 Dose: 100 mg Documented by: Discontinued Medications Albuterol/Ipratropium (Albuterol/Ipratropium 3.0-0.5 Mg/3 Ml Neb Soln) 3 ml NEB Q4HRRT [facility] Last Admin: 07/25/21 06:09 Dose: 3 ml Documented by: Amlodipine Besylate (Amlodipine 5 Mg Tab) 10 mg PO DAILY [facility] Last Admin: 07/25/21 10:21 Dose: Not Given Documented by: Enoxaparin Sodium (Enoxaparin 40 Mg/0.4 Ml Syringe) 40 mg SUBCUT DAILY [facility] Last Admin: 07/25/21 10:21 Dose: Not Given Documented by: Sodium Chloride (Normal Saline) 1,000 mls @ 100 mls/hr IV ASDIRECTED [facility] Last Admin: 07/26/21 06:26 Dose: 100 mls/hr Documented by: Iopamidol (Iopamidol 755 Mg/Ml 100 Ml Bottle) 100 ml IVPUSH ONETIME ONE Stop: 07/25/21 00:45 Last Admin: 07/25/21 00:45 Dose: 100 ml Documented by: Lisinopril (Lisinopril 20 Mg Tab) 40 mg PO DAILY [facility] Last Admin: 07/25/21 10:21 Dose: Not Given Documented by: Lorazepam (Lorazepam 1 Mg Tab) 1 mg PO Q6H PRN PRN Reason: Agitation Last Admin: 07/25/21 01:38 Dose: 1 mg Documented by: Methylprednisolone Sodium Succinate (Methylprednisolone Sodium Succinate 125 Mg/2 Ml Sdv) 125 mg IVPUSH Q8H [facility] Last Admin: 07/25/21 10:22 Dose: Not Given Documented by: Nicotine (Nicotine 21 Mg/24 Hr Patch) 21 mg TRDERM DAILY [facility] Last Admin: 07/25/21 10:21 Dose: 21 mg Documented by: Thiamine HCl (Thiamine 100 Mg Tab) 100 mg PO BEDTIME [facility] Last Admin: 07/25/21 10:22 Dose: Not Given Documented by: - Exam General: Reports: Alert, Oriented, Cooperative, No Acute Distress HEENT: Reports: Mucous Membr. Moist/[place] Neck: Reports: Supple, Trachea Midline Lungs: Reports: Clear to Auscultation, Normal Respiratory Effort Cardiovascular: Reports: Regular Rate, Regular Rhythm, No Murmurs GI/Abdominal Exam: Normal Bowel Sounds, Soft, Non-Tender, No Organomegaly, No Distention, No Mass Extremities: Normal Inspection, Non-Tender, No Pedal Edema, Normal Capillary Refill Skin: Reports: Warm, Dry, Intact Neurological: Reports: No New Focal Deficit
== END 2021-07-27 10:30 | disposition home or self-care (01) | DRG 426 ==
LOC: VM.ED 22:08 → VM.MS 07-25 00:30 → VM.ED 07-25 00:35
PROVIDERS: ADMIT Family Medicine; ATTEND Family Medicine
DX: E87.1 Hypo-osmolality and hyponatremia (principal); J96.01 Acute respiratory failure with hypoxia; J44.1 Chronic obstructive pulmonary disease with (acute) exacerbation; G47.33 Obstructive sleep apnea (adult) (pediatric); E66.9 Obesity, unspecified; F10.20 Alcohol dependence, uncomplicated; R79.1 Abnormal coagulation profile; F17.210 Nicotine dependence, cigarettes, uncomplicated; Z20.822 Contact with and (suspected) exposure to COVID-19; Z68.41 Body mass index [BMI] 40.0-44.9, adult
CPT/HCPCS: 0241U; 36415; 36600; 71275; 80048; 80053; 81003; 82140; 82533; 82570; 82803; 82977; 83605; 83735; 83880; 84145; 84300; 84443; 84484; 85025; 85379; 85610; 86140; 93005; 93010; 94640; 94760; 99284; 99285-25; A9270-GY; J1650; J2930; J7030; J7620-GY; Q9967

== ENCOUNTER 2023-05-03 14:31 | Emergency (ER) | payer MEDICARE, BC ==
[2023-05-03] MEDS ORDERED: Lidocaine 1% 10 ML MDV INJECT ONE (14:37)
[2023-05-03] MEDS ORDERED: Diphtheria,Pertussis(Acell),Tetanus Vaccine 0.5 ML Syringe IM ONE (15:08)
== END 2023-05-03 15:24 | disposition home or self-care (01) ==
LOC: VM.ED 14:31
DX: S51.812A Laceration without foreign body of left forearm, initial encounter (principal); I10 Essential (primary) hypertension; E66.9 Obesity, unspecified; Z68.30 Body mass index [BMI] 30.0-30.9, adult; Z23 Encounter for immunization; Z87.891 Personal history of nicotine dependence; Z79.899 Other long term (current) drug therapy; W26.8XXA Contact with other sharp object(s), not elsewhere classified, initial encounter
CPT/HCPCS: 12002; 90471; 90715; 99282-25; J3490

== ENCOUNTER 2023-12-06 06:33 | Day surgery (SDC) | payer MEDICARE, BC ==
[2023-12-06] MEDS: Lactated Ringers 1,000 ML IV SCH (06:54)
[2023-12-06] MEDS ORDERED: fentaNYL 100 MCG/2 ML SDV ONE (07:44)
[2023-12-06] MEDS ORDERED: Propofol 200 MG/20 ML SDV ONE (07:44)
[2023-12-06] MEDS ORDERED: Midazolam 1 MG/ML 2 ML SDV ONE (07:44)
== END 2023-12-06 09:16 | disposition home or self-care (01) ==
LOC: VM.SDS 06:33
PROVIDERS: ATTEND Student in an Organized Health Care Education/Training Program
DX: Z12.11 Encounter for screening for malignant neoplasm of colon (principal); D12.3 Benign neoplasm of transverse colon; D12.8 Benign neoplasm of rectum; I10 Essential (primary) hypertension; Z86.010 Personal history of colon polyps; J44.9 Chronic obstructive pulmonary disease, unspecified; G47.33 Obstructive sleep apnea (adult) (pediatric); E66.9 Obesity, unspecified; Z68.39 Body mass index [BMI] 39.0-39.9, adult; Z79.899 Other long term (current) drug therapy
CPT/HCPCS: 00811; 45380; 45385; 88305; J2250; J2704; J3010; J7120